=== PATIENT | female | born 1990 | race Caucasian/White ===

== ENCOUNTER 2022-02-28 06:30 | Inpatient (IN) ==
[2022-02-28] MEDS ORDERED: PITOCIN ONE (06:41)
[2022-02-28] MEDS ORDERED: BETADINE SOLN ONE (06:41)
[2022-02-28] MEDS ORDERED: D5 1/2 NS 1,000 ML 1,000 ML IV ONE (06:41)
[2022-02-28] MEDS ORDERED: D5 LR + PITOCIN 10 UNITS/L 10 UNITS/1,000 ML BAG IV ONE (06:42)
[2022-02-28] MEDS ORDERED: D5 1/2 NS 1,000 mL + PITOCIN 20 UNITS/L IV 20 UNITS/1,000 ML BAG IV ONE (06:42)
[2022-02-28] MEDS ORDERED: STADOL INJ IVP PRN (07:00)
[2022-02-28] MEDS ORDERED: AMPICILLIN VIAL 2 GRAM ONE (07:07)
[2022-02-28] MEDS ORDERED: NS 100 ML IV 100 ML ONE ×2 (07:07→11:50)
--- NOTE | 2022-02-28 07:13 | DR.OB ---
OB Quick Note - Assessment/Plan Assessment/Plan: L&D 02/28/22 at 7:00am S-No complaint. O-Afebrile,VSS HAB=231 with good LTV, +accel, no decel. CTX=mild, irregular CVX=2cm/50%/-1/VTX AROM with clear fluid. IUPC and FSE placed. A-IUP at 39 0/7 weeks for induction +GBS P-Begin pitocin induction IV ABX in labor for +GBS Anticipate
[2022-02-28] MEDS ORDERED: D5 LR + PITOCIN 10 UNITS/L 10 UNITS/1,000 ML BAG IV PRN (07:17)
[2022-02-28] MEDS ORDERED: PHENERGAN INJ 25 MG IM PRN ×2 (07:17→16:04)
[2022-02-28] MEDS ORDERED: PITOCIN IVP ONE (07:17)
[2022-02-28] MEDS ORDERED: MORPHINE SULFATE INJ 2 MG INJ IVP PRN (07:17)
[2022-02-28] MEDS ORDERED: D5 1/2 NS 1,000 ML 1,000 ML IV SCH (07:17)
[2022-02-28] MEDS ORDERED: AMPICILLIN VIAL 1 GRAM 1 G in NS 50 ML IV + SPIKE MINIBAG* 50 ML IV SCH (07:17)
[2022-02-28] MEDS ORDERED: REGLAN INJ 10 MG VIAL IVP PRN (07:17)
[2022-02-28] MEDS ORDERED: NUBAIN INJ 200 MG VIAL MULTIDOSE IVP PRN (07:17)
[2022-02-28] MEDS ORDERED: AMPICILLIN VIAL 2 GRAM 2 G in NS 100 ML IV + SPIKE MINIBAG* 100 ML IV SCH (07:17)
[2022-02-28] MEDS ORDERED: TYLENOL 325 MG TAB PO ONE (07:41)
[2022-02-28] MEDS ORDERED: STADOL INJ ONE (08:58)
[2022-02-28] MEDS: AMPICILLIN VIAL 1 GRAM 1 G in NS 50 ML IV 50 ML IV SCH ×2 (09:18→13:19)
[2022-02-28] MEDS ORDERED: REGLAN INJ 10 MG VIAL ONE (11:19)
[2022-02-28] MEDS ORDERED: LR 1,000 ML IV 1,000 ML IV ONE (11:30)
[2022-02-28] MEDS ORDERED: FENTANYL VIAL INJ 100 mcg ONE ×2 (11:34→11:35)
[2022-02-28] MEDS ORDERED: NAROPIN EPIDURAL 0.2% 100 ML ONE (11:35)
[2022-02-28] MEDS ORDERED: AMPICILLIN VIAL 1 GRAM ONE (11:50)
[2022-02-28] MEDS ORDERED: XYLOCAINE 1 % (PLAIN) ONE (11:54)
[2022-02-28] MEDS ORDERED: XANAX ONE (13:27)
--- NOTE | 2022-02-28 16:47 | DR.OB ---
OB Quick Note - Assessment/Plan Assessment/Plan: Delivery Note BOX TOE STITCHER 02/28/22 at 3:55pm Patient complete and pushing. Head delivered over intact perineum. No nuchal cord. Nose and mouth bulb suctioned. Body delivered over intact perineum. Cord clamped x 2 and cut. handed to attendant. Cord sent for gases. Placenta delivered spontaneously / intact / 3 vessel cord. No CVX / vaginal / perineal tears noted. Viable male infant, VTX/OA, wt=8'6" and 8/9, stable to NBN. Mother stable to RR. VRK=203vh.
[2022-02-28] MEDS ORDERED: MILK OF MAGNESIA PO PRN (17:14)
[2022-02-28] MEDS ORDERED: DERMOPLAST PAIN RELIEF SPRAY TOP PRN (17:14)
[2022-02-28] MEDS ORDERED: XANAX PO PRN (17:14)
[2022-02-28] MEDS ORDERED: AMBIEN PO PRN (17:14)
[2022-02-28] MEDS ORDERED: ADACEL or BOOSTRIX TDaP VACCINE IM ONE (17:14)
[2022-02-28] MEDS ORDERED: VENTOLIN or PROAIR HFA IN PRN (17:14)
[2022-02-28] MEDS: D5 1/2 NS 1,000 ML 1,000 ML with PITOCIN 20 UNITS IV SCH ×2 (18:18)
[2022-02-28] MEDS: MOTRIN TAB 800 MG PO PRN (18:28)
[2022-03-01] MEDS: MOTRIN TAB 800 MG PO PRN ×2 (01:30→09:28)
[2022-03-01 05:13] LABS: HEMATOCRIT 25.4 % (36.0-47.0); HEMOGLOBIN 8.1 g/dL (12.0-16.0)
[2022-03-01] MEDS: D5 1/2 NS 1,000 ML 1,000 ML with PITOCIN 20 UNITS IV SCH ×4 (06:10→09:29)
[2022-03-01] MEDS ORDERED: DEPO-PROVERA CONTRACEPTIVE INJ IM ONE (07:32)
[2022-03-01] MEDS ORDERED: PERCOCET TAB 5/325 MG PO PRN (07:32)
[2022-03-01] MEDS ORDERED: PRENATAL PLUS PO SCH (09:00)
[2022-03-01] MEDS ORDERED: PROTONIX TAB 40 MG PO SCH (09:00)
[2022-03-01] MEDS: VSL#3 PO SCH ×2 (09:28→11:28)
[2022-03-01 13:35] VITALS: BP 105/60
[2022-03-01] MEDS ORDERED: FERROUS GLUCONATE PO SCH (17:00)
== END 2022-03-01 18:00 | disposition home or self-care (01) | DRG 806 ==
LOC: LD 06:34 → MED/SURG 17:40
PROVIDERS: ADMIT Specialist; ATTEND Specialist